=== PATIENT | male | born 1985 | race Caucasian/White ===

== ENCOUNTER 2017-01-17 10:52 | Inpatient (IN) | payer MEDICAID ==
--- NOTE | 2017-01-16 22:00 | NUR ---
RN NOTES: RECEIVED CHANGE OF ORDERS ON MEDICATION. NOTED NEW ROUTINE ORDERS FOR DILAUDID WELL ATIVAN ORDERS. NO NOTED WITHDRAWAL SYMPTOMS AT THIS TIME. ORDERS NOTED AND CARRIED OUT. PATIENT MADE AWARE WELL. CONTINUOUSLY MONITORED CLOSELY. PATIENT ONLY WITH SITTER AT BEDSIDE. Addendum: 01/18/17 at 0304 by LINDA ANDERSON RN PLS DISREGARD WRONG CHART
[~2017-01-17] VITALS: Ht 180.3 cm; Wt 88.0 kg
[2017-01-17] VITALS (16 sets, daily range): BP systolic 93–133; BP diastolic 43–82
--- NOTE | 2017-01-17 11:05 | NUR ---
PT BIB FAMILY TO ER BED 14 C/O GENERALIZED PAIN AND WEAKNESS X 4 DAYS. TACHYCARDIC SYSTEM ANALYST. PT ADMITS TO USING HEROIN AND METH TODAY. GENERALIZED PETACHIAL RASH NOTED. GOWNED AND PLACED ON MONITOR. NAD NOTED. AWAITING MD RICARDO.
--- NOTE | 2017-01-17 11:15 | NUR ---
DR GRADY AT BEDSIDE FOR EVAL.
--- NOTE | 2017-01-17 11:18 | NUR ---
IV LINE STARTED BLOOD DRAWN AND SENT TO LAB.
[2017-01-17] MEDS ORDERED: VANCOMYCIN 1 GM in IV D5W 250 ML IV ONE (11:30)
[2017-01-17] MEDS ORDERED: GENTAMICIN 80 MG in IV D5W 50 ML IV ONE (11:30)
[2017-01-17] MEDS ORDERED: IV NS 0.9% 1,000 ML BAG IV ONE (11:30)
--- NOTE | 2017-01-17 11:34 | NUR ---
RADIOLOGY AT BEDSIDE FOR CHEST XRAY.
[2017-01-17 11:37] LABS: CALCIUM, SERUM 8.3 mg/dL (8.5-10.1); CARBON DIOXIDE 25 mmol/L (21-32); CHLORIDE 87 mmol/L (98-107); CREATININE 4.6 mg/dL (0.6-1.3); GLUCOSE 110 mg/dL (74-106); POTASSIUM 3.6 mmol/L (3.5-5.1); SODIUM SERUM 122 mmol/L (136-145); UREA NITROGEN, BLOOD 67 mg/dL (7-18)
[2017-01-17 11:41] LABS: HEMATOCRIT 31 % (39-51); HEMOGLOBIN 10.6 g/dL (13.5-17.5); MEAN CORPUSCULAR HEMOGLOBIN 28 PG (26.0-33.0); MEAN CORPUSCULAR HGB CONC 34 g/dl (31.0-36.0); MEAN CORPUSCULAR VOLUME 81 fL (80-96); PLATELET COUNT (AUTO) 79 /CMM (150-450); RDW COEFFICIENT OF VARIATION 15.4 (11.5-15.0); RED BLOOD CELL COUNT(AUTO) 3.86 MIL/uL (4.5-6.0)
[2017-01-17 11:43] LABS: ALANINE AMINOTRANSFERASE 25 U/L (12-78); ALBUMIN 1.6 g/dL (3.4-5.0); ALKALINE PHOSPHATASE 268 U/L (46-116); ASPARTATE AMINOTRANSFERASE 51 U/L (15-37); BILIRUBIN,DIRECT 1.7 mg/dL (0.0-0.2); BILIRUBIN,TOTAL 2.2 mg/dL (0.2-1.0); INR 1.01 (0.87-1.13); PROTHROMBIN TIME 10.5 SECS (9.5-12.7); TOTAL PROTEIN, SERUM 6.9 g/dL (6.4-8.2)
[2017-01-17 11:44] LABS: WHITE BLOOD COUNT (AUTO) 31.3 K/uL (4.3-11.0)
[2017-01-17 11:45] LABS: TROPONIN I < 0.017 ng/mL (0.00-0.056)
--- NOTE | 2017-01-17 11:48 | NUR ---
CALLED [employer], TURN MACHINE OPERATOR WAS PAGED.
[2017-01-17] MEDS ORDERED: ONDANSETRON HCL/PF 4 MG/2 ML VIAL IVP PRN (12:30)
[2017-01-17] MEDS ORDERED: Z GUARD REMEDY 2 OZ OINT TP PRN (12:30)
[2017-01-17] MEDS ORDERED: MAG HYDROX/AL HYDROX/SIMETH 30 ML UDC PO PRN (12:30)
[2017-01-17] MEDS ORDERED: MAGNESIUM HYDROXIDE 30 ML UDC PO PRN (12:30)
--- NOTE | 2017-01-17 12:50 | NUR ---
REPORT GIVEN TO YSABEL. PT AWAITING TRANSFER TO FLOOR.
[2017-01-17 12:53] LABS: BAND % (MANUAL) 6 % (0.0-5.0); EOSINOPHILS % (MANUAL) 2 % (0-4); LYMPHOCYTES % (MANUAL) 4 % (16-48); MONOCYTES % (MANUAL) 4 % (0-11.0); NEUTROPHILS % (MANUAL) 84 (42-76)
[2017-01-17] MEDS ORDERED: GENTAMICIN IR PRN (13:00)
[2017-01-17] MEDS ORDERED: NS 0.9% IR PRN (13:00)
--- NOTE | 2017-01-17 13:15 | NUR ---
RN INITIAL NOTES RECEIVED PT FROM ER VIA JARAD. AWAKE, A/OX4. ON 02 AT 2LPM VIA JEFE. NO RESPIRATORY DISTRESS NOTED. NO SOB NOTED. DENIES ANY PAIN AT THIS TIME. IV LINES IN PLACE. FLUSHED WITH NS. PLACED COMFORTABLY TO BED. CONNECTED TO BEDSIDE MONITOR. ORIENTED TO ROOM AND USE OF CALL LIGHT. BODY ASSESSMENT DONE. PICTURES TAKEN FOR SKIN ISSUES AND PLACED IN THE CHART. DR. PALMER AWARE OF ADMISSION. ADMISSION ORDERS MADE AND CARRIED OUT. WILL CLOSELY MONITOR.
[2017-01-17] MEDS ORDERED: FEE PK DOSING 1 MIN EA MC ONE ×2 (13:35)
[2017-01-17] MEDS: IV NS 0.9% 1,000 ML IV PRN ×2 (13:45→21:24)
--- NOTE | 2017-01-17 13:50 | NUR ---
RN NOTES SEEN AND EXAMINED BY DR. PALMER. AWARE OF LAB VALUES: WBC 31.3, HGB 10.6, HCT 31, PLATELET 79, SODIUM 122, BUN 67, CREA 4.6, LACTIC 2.4. MD ORDERED ECHO AND CT SCAN ABDOMEN PELVIS. AWAITING FOR RPT LACTIC LEVEL. DISCUSSED PLAN OF CARE WITH PT, MOTHER AND GF AT BEDSIDE. WILL CONTINUE TO MONITOR.
[2017-01-17] MEDS ORDERED: LORAZEPAM INJ 2 MG/ML VIAL IV PRN (14:00)
[2017-01-17] MEDS: CEFTRIAXONE 2 G in IV D5W 100 ML IV SCH (14:32)
[2017-01-17] MEDS: HYDROMORPHONE INJ 2 MG/ML DISP.SYRIN IV PRN ×2 (14:59→19:51)
--- NOTE | 2017-01-17 16:15 | NUR ---
RN NOTES SEEN AND EXAMINED BY DR. SIMON. AWARE OF CURRENT LAB VALUES, CXR AND CT SCAN RESULT. MD REVIEWED CURRENT MEDICATIONS. PT AFEBRILE. DISCUSSED PLAN OF CARE WITH PT, MOTHER AND GF AT BEDSIDE, VERBALIZED UNDERSTANDING. WILL CONTINUE TO MONITOR.
--- NOTE | 2017-01-17 16:20 | NUR ---
RN NOTES CALLED DR. PALMER REGARDING CT SCAN RESULT. PER MD, WILL CONTINUE ATB TX ORDERED. PT AFEBRILE. WILL CONTINUE TO MONITOR.
[2017-01-17 17:54] LABS: APPEARANCE,URINE SL CLOUDY (CLEAR); BILIRUBIN,URINE NEGATIVE (NEGATIVE); BLOOD, URINE TRACE-INTA Ery/uL (NEGATIVE); COLOR,URINE YELLOW (YELLOW); KETONES,URINE NEGATIVE (NEGATIVE); LEUKOCYTE ESTERASE ,URINE NEGATIVE (NEGATIVE); NITRITE, URINE NEGATIVE (NEGATIVE); PH,URINE 5.5 (5.0-8.0); PROTEIN,URINE NEGATIVE (NEGATIVE); UGLUCOSE NEGATIVE (NEGATIVE); UROBILINOGEN,URINE 0.2 EU/dL (0.2)
[2017-01-17 18:08] LABS: BACTERIA,URINE Many /HPF (None Seen)
[2017-01-17 18:09] LABS: SQUAMOUS EPITHELIAL CELL,UR Few /HPF (None Seen)
--- NOTE | 2017-01-17 18:37 | NUR ---
RN NOTES DR. PALMER IN THE UNIT. ASKED GF AT BEDSIDE FOR LEGAL DOCUMENTATION JUST IN CASE PT WONT BE ABLE TO MAKE DECISIONS FOR HIMSELF. ALSO ORDERED 1:1 SITTER.
--- NOTE | 2017-01-17 18:45 | NUR ---
RN CLOSING NOTES PT REMAINS AWAKE, A/OX3-4. HOB ELEVATED. NO RESPIRATORY DISTRESS NOTED. NO SOB NOTED. DENIES ANY PAIN. IV LINES IN PLACE. TOLERATING IVF WELL. KEPT COMFORTABLE. KEPT CLEAN AND DRY. CALL LIGHT WITHIN REACH. WILL ENDORSE FOR CONTINUITY OF CARE.
--- NOTE | 2017-01-17 20:05 | NUR ---
RN OPENING NOTES: RECEIVED PT ON BED AWAKE ALOX4 VERBALLY RESPONSIVE, WITH NOTED SLIGHT SLURRED SPEECH. ON O2 THERAPY AT 2-3LPM, NOT IN APPARENT DISTRESS. WITH PATIENT;S MOTHER AT BEDSIDE. SINUS TACH ON MONITOR HR AT 100'S BPM. IV ACCESS ON R AND LEFT HAND PATENT AND INTACT, IVF AT ORDERED RATE. WITH COMPLAINTS OF PAIN ON MEDIAL CHEST AREA RADIATING TO HIS FEET. DILAUDID ORDERED. MONITORED FOR RESPONSE TO PAIN MEDICATION. WITH SITTER AT BEDSIDE. SAFETY MEASURES ENSURED AT ALL TIMES. TO SCREEN VISITORS WELL. CONTINUOUSLY MONITORED CLOSELY ESPECIALLY FOR WITHDRAWAL SYMPTOMS.
--- NOTE | 2017-01-17 21:30 | NUR ---
RN NOTES: PATIENT'S AT BEDSIDE RELAYED THAT PATIENT MIGHT NEED NICOTINE PATCH TO HELP HE IS A DAILY SMOKER. 2300 PATIENT FOLLOWED UP WITH NICOTINE PATCH AGAIN. SPOKE TO MD SALES ADVISORY MANAGER DR HARRIS AND OBTAINED ORDER FOR NICOTINE PATCH. ORDER CARRIED OUT.
--- NOTE | 2017-01-17 22:00 | NUR ---
RN NOTES: RECEIVED CHANGE OF ORDERS ON MEDICATION. NOTED NEW ROUTINE ORDERS FOR DILAUDID WELL ATIVAN ORDERS. NO NOTED WITHDRAWAL SYMPTOMS AT THIS TIME. ORDERS NOTED AND CARRIED OUT. PATIENT MADE AWARE WELL. CONTINUOUSLY MONITORED CLOSELY. PATIENT ONLY WITH SITTER AT BEDSIDE.
[2017-01-17] MEDS ORDERED: HYDROMORPHONE 1 MG/1 ML DISP.SYRIN ONE (22:30)
[2017-01-17] MEDS ORDERED: NICOTINE PATCH (21MG) 21 MG PATCH.TD24 TD ONE (22:37)
[2017-01-17] MEDS: NICOTINE PATCH (21MG) 21 MG PATCH.TD24 TD SCH (22:40)
[2017-01-17] MEDS: HYDROMORPHONE 1 MG/1 ML DISP.SYRIN IV SCH (22:41)
[2017-01-18] VITALS (28 sets, daily range): BP systolic 107–146; BP diastolic 53–93
[2017-01-18] MEDS: LORAZEPAM INJ 2 MG/ML VIAL IV PRN ×4 (00:19→23:27)
[2017-01-18] MEDS: ACETAMINOPHEN 325 MG TABLET PO PRN (02:27)
--- NOTE | 2017-01-18 02:30 | NUR ---
RN NOTES: PATIENT STARTED TO BE TACHYCARDIC A T 130'S AND IS SHIVERING. TEMP CHECKED AT 100.7. TYLENOL ORDERED AND ENSURED LIGHT WEIGHT BEDDINGS. TO MONITOR FOR FURTHER FEBRILE EPISODES AND WORSENING WITHDRAWAL SYMPTOMS.
[2017-01-18] MEDS ORDERED: HYDROMORPHONE 1 MG/1 ML DISP.SYRIN ONE (04:05)
[2017-01-18] MEDS: IV NS 0.9% 1,000 ML IV PRN ×4 (04:09→23:28)
[2017-01-18] MEDS: HYDROMORPHONE 1 MG/1 ML DISP.SYRIN IV SCH ×4 (04:09→21:52)
[2017-01-18 04:30] LABS: HEMATOCRIT 26 % (39-51); HEMOGLOBIN 8.9 g/dL (13.5-17.5); MEAN CORPUSCULAR HEMOGLOBIN 28 PG (26.0-33.0); MEAN CORPUSCULAR HGB CONC 34 g/dl (31.0-36.0); MEAN CORPUSCULAR VOLUME 82 fL (80-96); RDW COEFFICIENT OF VARIATION 16.9 (11.5-15.0); WHITE BLOOD COUNT (AUTO) 21.4 K/uL (4.3-11.0)
--- NOTE | 2017-01-18 04:30 | NUR ---
RN NOTES: TEMP RECHECKED NOW DOWN TO 99.9 AFTER TYLENOL. SPONGE BATH GIVEN. ENSURED COOLING MEASURES. PATIENT REQUESTING FOR MUSCLE RELAXANT PATIENT COMPLAINING THAT BLE MUSCLES ARE TIGHTENING AND STIFF. ENCOURAGED ROM. PATIENT IN PAIN DURING EXERCISE/ADL'S DILAUDID ALREADY GIVEN. 0500 RECEIVED CRITICAL LABS FOR PATIENT PLATELETS OF 50. RELAYED TO DR HARRIS, NO NEW ORDERS GIVEN. ASKED IF OK TO GIVE MUSCLE RELAXANT FOR PATIENT ALTHOUGH NO NEW MED ORDERS GIVEN. MADE PATIENT AWARE. PATIENT'S HEART RATE NOW TRENDING DOWN TO LOW 100'S. CONTINUOUSLY MONITORED.
[2017-01-18 04:40] LABS: CALCIUM, SERUM 7.6 mg/dL (8.5-10.1); MAGNESIUM 2.5 mg/dL (1.8-2.4); PHOSPHORUS 3.1 mg/dL (2.5-4.9); POTASSIUM 3.4 mmol/L (3.5-5.1)
[2017-01-18 04:51] LABS: THYROID STIMULATING HORMONE 2.053 uIU/mL (0.358-3.74)
[2017-01-18 04:54] LABS: PLATELET COUNT (AUTO) 50 /CMM (150-450)
[2017-01-18 05:20] LABS: BAND % (MANUAL) 11 % (0.0-5.0); LYMPHOCYTES % (MANUAL) 4 % (16-48); MONOCYTES % (MANUAL) 6 % (0-11.0); NEUTROPHILS % (MANUAL) 79 (42-76)
--- NOTE | 2017-01-18 06:42 | NUR ---
RN CLOSING NOTES: PATIENT COMPLAINING STILL OF MUSCLE CRAMPS AND PATIENT STARTED TO GET RESTLESS AT THIS TIME. ATIVAN GIVEN PRN ORDERED. DR HARRIS DURING PREVIOUS CONVERSATION AGREES WITH ATIVAN FOR NOW IF WITH FURTHER COMPLAINTS OR EPISODES OF TREMORS AND STIFFNESS. OTHERWISE PATIENT'S VITALS REMAINED WITHIN LIMITS, HR AT 110'S. SITTER REMAINED AT BEDSIDE. SAFETY MEASURES ENSURED. CONTINUOUSLY MONITORED CONTINUITY OF CARE TO BE ENDORSED TO AM SHIFT RN.
--- NOTE | 2017-01-18 07:05 | NUR ---
RN INITIAL NOTES RECEIVED PT AWAKE, A/OX4. ON 02 AT 2LPM VIA NC. NO RESPIRATORY DISTRESS NOTED. NO SOB NOTED. DENIES ANY PAIN AT THIS TIME. IV LINES IN PLACE. ON IVF. PT COMFORTABLE. BLE ELEVATED. CALL LIGHT WITHIN REACH. SITTER AT BEDSIDE. WILL MONITOR.
[2017-01-18] MEDS: NICOTINE PATCH (21MG) 21 MG PATCH.TD24 TD SCH (08:19)
--- NOTE | 2017-01-18 09:40 | NUR ---
RN NOTES SEEN AND EXAMINED BY DR. AMBROSIO. AWARE OF CURRENT LAB VALUES AND IMAGING RESULT. PER MD, WILL CALL SURGEON TO DISCUSS WETHER HE NEEDS VALVE REPLACEMENT. WILL STAY ON IV ATBS FOR LIKE 6 WEEKS. DISCUSSED PLAN OF CARE WILL PT. WILL CONTINUE TO MONITOR.
--- NOTE | 2017-01-18 10:30 | NUR ---
RN NOTES SEEN AND EXAMINED BY DR. SIMON. AWARE OF PT'S CURRENT LAB VALUES. ON 02 AT 2LPM VIA NC. DISCUSSED PLAN OF CARE WITH DR. AMBROSIO. NO ORDER MADE AT THIS TIME.
[2017-01-18] MEDS ORDERED: GENTAMICIN 80 MG in IV D5W 50 ML IV SCH (11:00)
--- NOTE | 2017-01-18 11:34 | NUR ---
RN NOTES SEEN AND EXAMINED BY DR. SHAMA CALERO. AWARE OF LAB VALUES: WBC 21.4, AFEBRILE. ON IV ATBS. HGB 8.9, HCT 26, PLATELET 50. NO SIGNS OF ACTIVE BLEEDING NOTED. SODIUM 131, POTASSIUM 3.4, BUN 54, CREA 3.0. ON IVF. PER MD, DO NOT REPLACE POTASSIUM DUE TO ELEVATED BUN/CREA LEVEL. MD ORDERED BLD CULTURE X2. NOTED AND CARRIED OUT. WILL MONITOR. Addendum: 01/18/17 at 1449 by GORGE ALLEN RN [id number] DR. SESAY NOTIFIED OF BLD CX RESULT, MRSA STAPH. PT ON IV ATBS. NO ASE NOTED. MD HAS ORDER FOR BLD CULTURE X2.
[2017-01-18] MEDS: VANCOMYCIN 1 GM in IV D5W 250 ML IV SCH (12:12)
[2017-01-18] MEDS: CEFTRIAXONE 2 G in IV D5W 100 ML IV SCH (13:15)
[2017-01-18] MEDS: HYDROMORPHONE 1 MG/1 ML DISP.SYRIN IV PRN ×2 (13:16→20:04)
--- NOTE | 2017-01-18 14:15 | NUR ---
RN NOTES SEEN AND EXAMINED BY DR. HERNANDEZ. AWARE OF CURRENT LAB VALUES AND CXR RESULT. PT ON IVF. ADEQUATE URINE OUTPUT NOTED. WILL CLOSELY MONITOR.
--- NOTE | 2017-01-18 14:39 | NUR ---
Social service consult requested by Dr. Vidal for IV drug use and homelessness. Pt. is a 31 year old male who was admitted to [facility] for endocarditis. HARRY met with pt. and his mother Anna justice. Pt. is alert and oriented x2. Pt. appeared lethargic and unable to speak clearly at this time. HARRY spoke with pt's mother Anna. Anna informed HARRY that pt. has a /girlfriend Cheyenne, that HARRY met yesterday. Both pt. and Cheyenne have been residing for the past 6 weeks at pt's father's house located at [address] [place] [address] in [facility]. Currently pt's father Rohan is also hospitalized at [facility]. Anna informed HARRY that pt. has Asperger's syndrome and graduated with a Masters in Computer Science from [employer]. Pt. is a heroin and methamphetamine user and often shares needles with his Cheyenne. Pt. has been using IV Heroin for the last three years. The longest pt. has been sober for about 2 months.Pt. and his /girlfriend use about 1 g heroin a day if able to. Pt. is unemployed at this time and does not have a strong work history. Pt. mother Anna began to cry. HARRY offered active listening and emotional support to her. Pt. and his have been moving a lot over the last 2 years periodically homeless on the streets intermittently or with family/friends. Addendum: 01/18/17 at 1527 by RAMILA MCDONALD Pt. has a court order to attend drug treatment that needs to be completed by 05/04/2017.
[2017-01-18] MEDS: SOD FERRIC GLUC 125 MG in IV NS 0.9% 100 ML IV SCH (14:58)
--- NOTE | 2017-01-18 18:56 | NUR ---
RN CLOSING NOTES PT REMAINS AWAKE, A/OX3-4. HOB ELEVATED. NO RESPIRATORY DISTRESS NOTED. NO SOB NOTED. NO SIGNS OF ANY PAIN. IV LINES IN PLACE. TOLERATING IVF WELL. KEPT COMFORTABLE. KEPT CLEAN AND DRY. CALL LIGHT WITHIN REACH. SITTER AT BEDSIDE. WILL ENDORSE FOR CONTINUITY OF CARE.
--- NOTE | 2017-01-18 20:00 | NUR ---
RN INITIAL NOTES RECEIVED THE PATIENT AWAKE AT BEDSIDE, A/O X3, ON 2L NASAL CANNULA SATURATING WELL, NO S/S OF RESP DISTRESS. CURRENTLY ST ON THE MONITOR, HR 120-140'S. MOM TAM AND LISSY ARE AT BEDSIDE. SITTER AT BEDSIDE WELL. PT IS ABLE TO USE THE URINAL. RIGHT HAND 20G AND LEFT HAND 18G WITH NS @ 150MLS/HR, NO S/S OF INFILTRATION/INFECTION, DRESSINGS CDI. BED LOW AND LOCKED, SIDERAILS UP, CALL LIGHT WITHIN REACH. WILL MONITOR
--- NOTE | 2017-01-18 22:00 | NUR ---
RN NOTES EXPLAINED TO /GIRLFRIEND LISSY ABOUT ICU VISITOR POLICY. LISSY VERBALIZED UNDERSTANDING AND IS WILLING TO STAY IN WAITING ROOM AND JUST VISIT THE PATIENT EVERY HOUR FOR 10-15MIN AT A TIME.
[2017-01-19] VITALS (24 sets, daily range): BP systolic 92–165; BP diastolic 60–105
[2017-01-19] MEDS: HYDROMORPHONE 1 MG/1 ML DISP.SYRIN IV SCH (03:08)
[2017-01-19] MEDS: ACETAMINOPHEN 325 MG TABLET PO PRN ×3 (03:23→19:30)
[2017-01-19] MEDS: LORAZEPAM INJ 2 MG/ML VIAL IV PRN ×2 (03:24→14:38)
[2017-01-19 04:48] LABS: HEMATOCRIT 23 % (39-51); HEMOGLOBIN 7.8 g/dL (13.5-17.5); MEAN CORPUSCULAR HEMOGLOBIN 28 PG (26.0-33.0); MEAN CORPUSCULAR HGB CONC 34 g/dl (31.0-36.0); MEAN CORPUSCULAR VOLUME 82 fL (80-96); RDW COEFFICIENT OF VARIATION 16.7 (11.5-15.0); RED BLOOD CELL COUNT(AUTO) 2.79 MIL/uL (4.5-6.0); WHITE BLOOD COUNT (AUTO) 19.3 K/uL (4.3-11.0)
[2017-01-19] MEDS: IV NS 0.9% 1,000 ML IV PRN (05:08)
[2017-01-19 05:11] LABS: CALCIUM, SERUM 7.6 mg/dL (8.5-10.1); CREATININE 1.5 mg/dL (0.6-1.3); MAGNESIUM 2.1 mg/dL (1.8-2.4); PHOSPHORUS 3.9 mg/dL (2.5-4.9); POTASSIUM 3.2 mmol/L (3.5-5.1)
[2017-01-19 05:32] LABS: PLATELET COUNT (AUTO) 53 /CMM (150-450)
[2017-01-19 06:14] LABS: BAND % (MANUAL) 2 % (0.0-5.0); LYMPHOCYTES % (MANUAL) 7 % (16-48); MONOCYTES % (MANUAL) 9 % (0-11.0); NEUTROPHILS % (MANUAL) 82 (42-76)
--- NOTE | 2017-01-19 06:30 | NUR ---
RN CLOSING NOTES PT REMAINS STABLE OF THE MOMENT, RESTING COMFORTABLY WITH NO S/S OF ANXIETY. ALL DUE MEDS GIVEN, AM CARE PROVIDED. WILL ENDORSE JANET TO AM RN
--- NOTE | 2017-01-19 07:13 | NUR ---
EFFICIENCY ANALYST NOTES RECEIVED PATIENT DROWSY , RESPONSIVE TO PAIN AND STERNAL RUB STIMULI , OPENS EYES , FOLLOWS COMMANDS ,BUT GOES TO SLEEP EASILY NOT IN ACUTE DISTRESS , RESPIRATIONS TACHYPNEIC AND DEEP WITH SPO2 OF 100% VIA 2LPM NC , ST 125 ON BEDSIDE MONITOR , IV OF R HAND # 20 AND L HAND # 18 PATENT AND INTACT WITH IVF OF NS @ 150ML/HR INFUSING WELL , ALL NEEDS ATTENDED , BED ON LOW AND LOCKED POSITION , SIDE RAILS X2 , CALL LIGHT WITHIN REACH , HOB @ 45 , 1:1 SITTER AT BEDSIDE , WILL CONTINUE TO MONITOR
[2017-01-19] MEDS: NICOTINE PATCH (21MG) 21 MG PATCH.TD24 TD SCH (08:45)
[2017-01-19] MEDS: Potassium Chloride 20 MEQ in IV NS 0.9% 1,000 ML IV SCH ×3 (08:45→23:50)
--- NOTE | 2017-01-19 09:10 | NUR ---
SKEET OPERATOR NOTES SEEN AND EVALUATED BY DR SIMON , DISCUSSED LABS , PT ON 2LPN SPO2 OF 100% TACHYPNEIC WITH DEEP RESPIRATIONS WITH NO EVIDENCE OF DISTRESS , DROWSY , RESPONSIVE TO PAIN STIMULI , OPENS EYES BUT EASILY GOES BACK TO SLEEP , ABG RESULT DISCUSSED , MD AWARE
[2017-01-19 09:14] LABS: ABG BASE EXCESS 2.2 mmol/L; ABG OXYGEN SATURATION 94.6 % (92.0-98.5); ABG PCO2 31.1 mmHg (35.0-45.0); ABG PH 7.522 (7.350-7.450); ABG PO2 75.7 mmHg (75.0-100.0); AaDO2 101.7 mmHg; COHb 1.5 % (0.5-1.5); MetHb 0.7 % (0.0-1.5); O2Hb 92.5 % (94.0-97.0); SITE, ABG Right Radial; VENT MODE, BG NASAL CANNULA
--- NOTE | 2017-01-19 09:45 | NUR ---
SAMPLE DYE MIXER NOTES SEEN AND EVALUATED BY DR SESAY , DISCUSSED LABS , LATEST V/S , AFEBRILE , BLOOD CULTURES , PT ON 2LPM NC , DROWSY AND SEDATED , RESPONSIVE TO PAIN STIMULI , OPENS EYES BUT EASILY GOES BACK TO SLEEP , CONSUMED 50 % OF HIS MEALS , CURRENTLY ON IVF OF NS WITH 20MEQ KCL @ 125ML/HR INFUSING WELL , AWARE
--- NOTE | 2017-01-19 12:10 | NUR ---
MERCHANDISE SHOPPER NOTES PT NOTED TO BE TACHYPNEIC RR OF 30'S , TACHYCARDIC HR OF 120-130'S , HOT TO TOUCH TEMP OF 102.5F , BATHE PT WITH ICE WATER , APPLIED ICE PACKED AND PLACED COOLING BLANKET WITH CORE TEMP OF 102.5F , TYLENOL PRN GIVEN , PAGED DR EVERETT TO NOTIFY REGARDING PT TEMP . AWAITING FOR CALL BACK NOTED WITH X1BM SOFT WITH SOME SMALL AMOUNT OF BLOOD , STOOL COLLECTED AND SENT FOR STOOL OB .
[2017-01-19] MEDS: HYDROMORPHONE 1 MG/1 ML DISP.SYRIN IV PRN ×2 (12:56→20:23)
[2017-01-19] MEDS: VANCOMYCIN 1 GM in IV D5W 250 ML IV SCH (13:04)
[2017-01-19] MEDS: CEFTRIAXONE 2 G in IV D5W 100 ML IV SCH (13:19)
--- NOTE | 2017-01-19 13:33 | NUR ---
SUPPLIER QUALITY SPECIALIST NOTES PAGED DR SESAY UNDER [place] EXCHANGE , NOTIFIED PT HAS TEMP OF 102.5F , TYLENOL PRN GIVEN , COOLING BLANKET APPLIED , CURRENT TEMP IS 101.9 F , NOTED WITH A BLOOD IN HIS STOOL , PER ORDER REPEAT CBC @ 1800 . ORDERS CARRIED OUT Addendum: 01/19/17 at 1334 by DOV HAZEL RN MD JOSE WITH ADVANCING DIET FROM CLEAR LIQUIDS TO REGULAR CARDIAC DIET
--- NOTE | 2017-01-19 13:55 | NUR ---
BLIND HANGER NOTES SPOKE WITH DR SESAY , PER MD ORDER FIBRINOGEN AND FIBRIN SPLIT PRODUCTS , OBTAIN HEMATOLOGY CONSULT UNDER DR DICKENS DUE TO LOW H/H AND PLATELET POSSIBLE DIC? HOLD TELE TRANSFER AND KEEP PT ON ICU FOR OBSERVATION , ORDERS CARRIED OUT
[2017-01-19] MEDS: SOD FERRIC GLUC 125 MG in IV NS 0.9% 100 ML IV SCH (14:42)
--- NOTE | 2017-01-19 15:30 | NUR ---
PHARMACY INNOVATION ASSISTANT NOTES PT NOTED TO BE TACHYPNEIC RR OF 30'S , TACHYCARDIC HR OF 120-130'S , HOT TO TOUCH TEMP OF 102.5F , BATHE PT WITH ICE WATER , APPLIED ICE PACKED AND PLACED COOLING BLANKET WITH CORE TEMP OF 102.5F , TYLENOL PRN GIVEN ,SPOKE WITH MANAGER OPERATIONS DEVANTE , VERIFIED IF HE WANTS TO ORDER AL CULTURE , PER MANAGER OPERATIONS SHE WILL PUT ON ORDERS
[2017-01-19 16:06] LABS: INR 1.25 (0.87-1.13)
[2017-01-19 18:26] LABS: HEMATOCRIT 21 % (39-51); HEMOGLOBIN 7.3 g/dL (13.5-17.5); MEAN CORPUSCULAR HEMOGLOBIN 28 PG (26.0-33.0); MEAN CORPUSCULAR HGB CONC 35 g/dl (31.0-36.0); MEAN CORPUSCULAR VOLUME 79 fL (80-96); PLATELET COUNT (AUTO) 87 /CMM (150-450); RDW COEFFICIENT OF VARIATION 18.1 (11.5-15.0); RED BLOOD CELL COUNT(AUTO) 2.63 MIL/uL (4.5-6.0)
[2017-01-19 19:03] LABS: WHITE BLOOD COUNT (AUTO) 17.6 K/uL (4.3-11.0)
[2017-01-19 19:12] LABS: BAND % (MANUAL) 15 % (0.0-5.0); BASOPHILS % (MANUAL) 1 % (0.0-2.0); EOSINOPHILS % (MANUAL) 2 % (0-4); LYMPHOCYTES % (MANUAL) 11 % (16-48); MONOCYTES % (MANUAL) 5 % (0-11.0); NEUTROPHILS % (MANUAL) 66 (42-76)
--- NOTE | 2017-01-19 19:30 | NUR ---
GOVERNMENT SERVICE EXECUTIVE INITIAL NOTE RECEIVED REPORT FROM DOV LIU. PT IN BED. ASLEEP BUT EASILY AROUSABLE. PT IS ORIENTED X2 NAME AND PLACE. CURRENTLY ON 2L NC, RR 36. CORE TEMP 101.8, COOLING MEASURES IN PLACE. COOLING BLANKET AND ICE. LUNG SOUNDS DIMINISHED. BOWEL SOUNDS PRESENT. INCONTINENT TO URINE AND STOOL. RIGHT UPPER ARM MIDLINE INTACT, RIGHT HAND IV INFILTRATED, WILL REMOVE. REPOSITIONED FOR COMFORT. TAM (MOM) AT BEDSIDE. BED IN LOW LOCKED POSITION. CALL LIGHT WITHIN REACH. WILL CONTINUE TO MONITOR.
[2017-01-19] MEDS: VANCOMYCIN 0.75 GM in IV D5W 250 ML IV SCH (21:04)
[2017-01-20] VITALS (29 sets, daily range): BP systolic 105–165; BP diastolic 34–98
--- NOTE | 2017-01-20 00:10 | NUR ---
EMBOSSING MACHINE OPERATOR HELPER PT IN BED. INCONTINENT TO URINE AND STOOL. CLEANED AND REPOSITIONED WITH MAXIMUM ASSISTANCE. PT TOLERATED WELL. RR 30. CORE TEMP 100.1. WILL CONTINUE TO MONITOR.
[2017-01-20] MEDS: LORAZEPAM INJ 2 MG/ML VIAL IV PRN ×4 (00:52→21:59)
[2017-01-20] MEDS: ACETAMINOPHEN 325 MG TABLET PO PRN ×3 (02:35→20:18)
--- NOTE | 2017-01-20 02:35 | NUR ---
ICU/RN- FEBRILE, TEMPT.102/F, CONTINUES COOLING MEASURES IN PROGRESS. TYLENOL 650MG PO GIVEN, TOLERATED WELL. WILL REASSESS FOR PRN EFFECTIVENESS
--- NOTE | 2017-01-20 02:59 | NUR ---
ICU/RN-RECEIVED PT. FROM NOE VEGA. SLEEPING, AROUSABLE, BREATHING FAST W/ RR-32/MIN. W/ O2 SUPPORT OF 3L/NC,SATS.-100%.EKG ST W/ HR-121, BP-143/86. NO S/S OF DISTRESS OR PAIN. FEBRILE.-102.2/F,W/ CONTINUES COOLING MEASURES, COOLING BLANKET IN PLACE. PT. ON CONTACT ISOLATION FOR MRSA-BLOOD. PRECAUTIONS TAKEN PER PROTOCOL.
--- NOTE | 2017-01-20 04:00 | NUR ---
ICU/RN- REMAINS FEBRILE. TEMPT.-101.9/F, CONTINUOUS COOLING MEASURES DONE, COOL BED BATH GIVEN.NOT IN ANY DISTRESS. WILL CONTINUE TO MONITOR.
[2017-01-20 04:33] LABS: HEMATOCRIT 21 % (39-51); HEMOGLOBIN 7.1 g/dL (13.5-17.5); MEAN CORPUSCULAR HEMOGLOBIN 28 PG (26.0-33.0); MEAN CORPUSCULAR HGB CONC 34 g/dl (31.0-36.0); MEAN CORPUSCULAR VOLUME 81 fL (80-96); PLATELET COUNT (AUTO) 56 /CMM (150-450); RDW COEFFICIENT OF VARIATION 16.8 (11.5-15.0); RED BLOOD CELL COUNT(AUTO) 2.57 MIL/uL (4.5-6.0); WHITE BLOOD COUNT (AUTO) 17.3 K/uL (4.3-11.0)
[2017-01-20] MEDS: VANCOMYCIN 0.75 GM in IV D5W 250 ML IV SCH ×3 (04:40→20:20)
[2017-01-20 04:46] LABS: CALCIUM, SERUM 7.4 mg/dL (8.5-10.1); MAGNESIUM 1.9 mg/dL (1.8-2.4); POTASSIUM 3.3 mmol/L (3.5-5.1)
[2017-01-20] MEDS: HYDROMORPHONE 1 MG/1 ML DISP.SYRIN IV PRN ×3 (05:11→17:51)
--- NOTE | 2017-01-20 05:11 | NUR ---
ICU/RN- PT. AWAKE, SHIVERING, C/O GENERALIZED BODY ACHES /, MEDICATED W/ DILAUDID 0.5 MG SIVP. WILL REASSESS FOR PRN EFFECTIVENESS.
[2017-01-20 05:50] LABS: BAND % (MANUAL) 1 % (0.0-5.0); EOSINOPHILS % (MANUAL) 2 % (0-4); LYMPHOCYTES % (MANUAL) 5 % (16-48); MONOCYTES % (MANUAL) 9 % (0-11.0); NEUTROPHILS % (MANUAL) 83 (42-76)
[2017-01-20] MEDS: POTASSIUM CHLORIDE 20 MEQ TAB.PRT.SR PO SCH ×2 (06:46→07:53)
--- NOTE | 2017-01-20 07:36 | NUR ---
CLAIM AUDITOR RECEIVED PATIENT FROM THE PREVIOUS SHIFT. PATIENT IS IN BED. SLEEPING BUT AROUSABLE. SINUS TACH ON MONITOR. TEMP 102.1. NORMAL BP. ABLE TO VERBALIZE NEEDS. SAFETY ASSESSMENT DONE. WILL CONTINUE TO MONITOR AND PROVIDE CARE.
[2017-01-20] MEDS: NICOTINE PATCH (21MG) 21 MG PATCH.TD24 TD SCH (07:53)
[2017-01-20] MEDS: HYDROCODONE/APAP 5/325MG 1 EACH TABLET PO PRN ×2 (08:02→20:17)
--- NOTE | 2017-01-20 08:46 | NUR ---
WOUND CARE CONSULT: PT SEEN FOR SKIN ASSESSMENT. CURRENT RAUL SCORE IS 17. PT IS CONTINENT AND ABLE TO ASSIST WITH TURNING AND REPOSITIONING IN BED BUT VERY WEAK. DRY ABRASIONS NOTED TO BILATERAL HIP AREAS. EDEMA NOTED TO BILATERAL LOWER EXTREMITIES. ALL SKIN PROTECTION MEASURES IN PLACE. DISCUSSED WITH NURSING STAFF. WILL SEE PRN. JUAREZ IN AGREEMENT WITH PLAN OF CARE. Addendum: 01/20/17 at 0847 by JENNIFER MCINTOSH WNDNU Amended: Links added.
--- NOTE | 2017-01-20 10:54 | NUR ---
ANIMAL SHELTER SUPERVISOR RECEIVED ORDERS TO CANCEL TELE LEVEL OF CARE PER VP INFORMATION TECHNOLOGY.
[2017-01-20] MEDS: CEFTRIAXONE 2 G in IV D5W 100 ML IV SCH (13:38)
[2017-01-20] MEDS: SOD FERRIC GLUC 125 MG in IV NS 0.9% 100 ML IV SCH (17:18)
[2017-01-20] MEDS: PANTOPRAZOLE 40 MG VIAL IV SCH (20:20)
--- NOTE | 2017-01-20 20:49 | NUR ---
received pt from day shift, alert, follows commands, fatigued, ST (130), on 3L 02 sat well, tachypneic (28-41), fever 104.1, on cooling blanket, additional cooling measures initiated, Tylenol given, BP stable, urinates in urinal, no bloody stool noted, sitter 1:1, family at the bedside, pt turned and repositioned.
[2017-01-21] VITALS (43 sets, daily range): BP systolic 90–159; BP diastolic 37–104
[2017-01-21] MEDS: HYDROMORPHONE 1 MG/1 ML DISP.SYRIN IV PRN ×3 (00:51→18:20)
--- NOTE | 2017-01-21 00:51 | NUR ---
pt is resting in the bed, alert, follows commands, ST 114, Temp down to 100.4, Dilaudid and Ativan given, v/s stable, no pain, cooling blanket on, pt turned and repositioned, sitter at the bedside.
[2017-01-21] MEDS: LORAZEPAM INJ 2 MG/ML VIAL IV PRN ×4 (01:59→20:22)
[2017-01-21] MEDS: ACETAMINOPHEN 325 MG TABLET PO PRN ×4 (02:29→21:06)
[2017-01-21] MEDS: HYDROCODONE/APAP 5/325MG 1 EACH TABLET PO PRN ×2 (03:32→14:40)
--- NOTE | 2017-01-21 04:15 | NUR ---
pt is resting in the bed, alert, follows commands, fatigued, ST, sat well, cooling blanket on, temp 102,1, Tylenol given, BP stable, [place] 1 tab given for pain, good urine output, on very small BM, pt cleaned, changed and repositioned q2hrs.
[2017-01-21] MEDS: VANCOMYCIN 0.75 GM in IV D5W 250 ML IV SCH ×3 (04:20→21:06)
[2017-01-21 05:11] LABS: MEAN CORPUSCULAR HEMOGLOBIN 27 PG (26.0-33.0); MEAN CORPUSCULAR HGB CONC 34 g/dl (31.0-36.0); MEAN CORPUSCULAR VOLUME 81 fL (80-96); PLATELET COUNT (AUTO) 88 /CMM (150-450); RDW COEFFICIENT OF VARIATION 16.9 (11.5-15.0); RED BLOOD CELL COUNT(AUTO) 2.46 MIL/uL (4.5-6.0); WHITE BLOOD COUNT (AUTO) 21.5 K/uL (4.3-11.0)
[2017-01-21 05:21] LABS: CALCIUM, SERUM 7.2 mg/dL (8.5-10.1); MAGNESIUM 1.5 mg/dL (1.8-2.4); PHOSPHORUS 4.1 mg/dL (2.5-4.9); POTASSIUM 3.8 mmol/L (3.5-5.1)
[2017-01-21 05:39] LABS: HEMATOCRIT 20 % (39-51); HEMOGLOBIN 6.7 g/dL (13.5-17.5)
[2017-01-21 06:07] LABS: COMPLEMENT C3, SERUM 64 mg/dL (82-167); COMPLEMENT C4, SERUM 10 mg/dL (14-44)
[2017-01-21 06:10] LABS: INR 1.16 (0.87-1.13); PROTHROMBIN TIME 12.1 SECS (9.5-12.7)
[2017-01-21 06:11] LABS: D-DIMER 14.2 mg/L(FEU (0.17-0.50)
--- NOTE | 2017-01-21 06:15 | NUR ---
H/H 6.10/14 sephora operations consultant notified Order received to recheck H/H at 0900 if still low call MD.
[2017-01-21 06:28] LABS: BAND % (MANUAL) 2 % (0.0-5.0); LYMPHOCYTES % (MANUAL) 9 % (16-48); MONOCYTES % (MANUAL) 4 % (0-11.0); NEUTROPHILS % (MANUAL) 85 (42-76)
[2017-01-21] MEDS: NICOTINE PATCH (21MG) 21 MG PATCH.TD24 TD SCH (08:48)
[2017-01-21] MEDS: FOLIC ACID 1 MG TABLET PO SCH (08:48)
[2017-01-21] MEDS: PANTOPRAZOLE 40 MG VIAL IV SCH ×2 (08:48→20:22)
[2017-01-21] MEDS: FERROUS SULFATE (325 MG) 325 MG/TAB TABLET PO SCH ×2 (08:52→16:51)
--- NOTE | 2017-01-21 09:30 | NUR ---
SERVICE ATTENDANT; PULMONARY Dr. Alanis at bedside update was give. Pts parents at bedside, Dr. Alanis able to speak with parents and give them update and POC. discussed with family regarding Dr. Fuentes recommendations.
--- NOTE | 2017-01-21 11:00 | NUR ---
SIMULATION TECH; MD PRIMARY Dr. Farshad Francis at bedside. update was given to pts parents. discussed regarding the possible need to transfer pt to higher level of care, for cardio-thoracic surgery. Also discussed regarding pts need for blood transfusion. pt in agreement for transfusion.
[2017-01-21] MEDS: Magnesium 1GM/D5W 100ML PREMIX 100 ML IV SCH ×2 (11:10→12:08)
[2017-01-21 11:15] LABS: *ANCANTIMYELOPEROXIDASE (MPO) <9.0 U/mL (0.0-9.0); *ANCANTIPROTEINASE 3 (PR-3) AB <3.5 U/mL (0.0-3.5)
[2017-01-21 11:40] LABS: HEMOGLOBIN 7.1 g/dL (13.5-17.5)
--- NOTE | 2017-01-21 11:45 | NUR ---
INDUSTRIAL SAFETY AND HEALTH MANAGER: Order clarification H/H back .04/17. Dr. tang notified of new results regarding if pt needs blood transfusion, per MD to give one unit of blood. Also discussed regarding pt remaining fibrile and if ok to given transfusion with elevated temp. Ok to give transfuse to administer Tylenol and Benadryl prior to transfusion.
--- NOTE | 2017-01-21 14:53 | NUR ---
PRIVATE EQUITY ANALYST; Pts girlfriend Cheyenne at bedside. Stating that she is the "". pts mother not sure if they are legally . Pt is awake and is ok to give information. Cheyenne is demanding that we change pts pain medications and asking for pts information. She has slurred speech and wearing sunglasses. Attempting to give pt liquid from her cup, told her that he is not allowed outside food for pts safety. Pt HR increasing to 140's-150's with temp of 104, pt restless. asked Cheyenne to step out and let pt rest. will review medications.
--- NOTE | 2017-01-21 14:57 | NUR ---
Pt's friend Steven and /girlfriend Cheyenne stopped by the Social service office requesting for HARRY to provide verification of admission letter for pt's pneumatic jack operator since pt. is court mandated to attend drug treatment program. HARRY completed letter and gave it to Steven. Addendum: 01/21/17 at 1523 by RAMILA MCDONALD HARRY suggested to Cheyenne, if possible she should bring copy of marriage certificate so there are no issues regarding if she is the or not.
--- NOTE | 2017-01-21 16:30 | NUR ---
curriculum director; pain management pt c/o generalized pain is requesting if we can change the frequency of Dilaudid medication. Dr. Yen notified per MD to keep orders the same, not to change frequency or dose.
[2017-01-21] MEDS: diphenhydrAMINE HCL 50 MG/ML VIAL IV PRN (16:52)
--- NOTE | 2017-01-21 17:38 | NUR ---
Discussed with Dr. Yen and nursing stock supervisor about Cheyenne;s appearance, slurred speech and attempt to given pt unknown fluids to drink. Per Dr. Yen and nursing stock supervisor ok to have visitor restrictions, for pt safety. Hospital Security notified that Cheyenne Zepeda and Steven Castro are able to visit pt with 10min intervals and with chief security and safety officer only and to stay with visitors at all time.
--- NOTE | 2017-01-21 20:00 | NUR ---
TEACHER OF THE DEAF/HARD OF HEARING NOTES RECEIVED PT IN BED, A/O X4. AWAKE. FEVER OF 103. COOLING BLANKET IN PLACE. TELE READS ST AT 126 BPM. ON NC AT 4 LPM, BRAD WELL. PT APPEARS DROWSY. JOSE 18G MIDLINE IN PLACE, RUNNING PRBC, NO ADVERSE REACTIONS NOTED. PT HAS HX OF DRUG ABUSE. ALL NEEDS MET. CALL LIGHT WITHIN REACH.
--- NOTE | 2017-01-21 21:00 | NUR ---
POLICE SHIFT COMMANDER NOTES PT MOTHER (TAM) AND MOTHER'S FRIEND AT BEDSIDE. ALL QUESTIONS ANSWERED. PT'S MOTHER REQUESTED TO CONTINUE THE LIMITED VISITATION RIGHTS FOR HILDA.
--- NOTE | 2017-01-21 22:00 | NUR ---
COMMUNICATIONS OPERATOR NOTES PT'S "" (LISSY) AND BROTHER (ALEC) CAME TO VISIT PT. ESCORTED AND SUPERVISED BY SECURITY THROUGHOUT VISIT. VISIT LIMITED TO 10 MINUTES.
[2017-01-21 23:32] LABS: HEMOGLOBIN 6.6 g/dL (13.5-17.5)
[2017-01-22] VITALS (52 sets, daily range): BP systolic 101–154; BP diastolic 58–102
[2017-01-22] MEDS: HYDROMORPHONE 1 MG/1 ML DISP.SYRIN IV PRN ×4 (00:22→19:27)
[2017-01-22] MEDS: HYDROCODONE/APAP 5/325MG 1 EACH TABLET PO PRN ×4 (00:59→22:19)
[2017-01-22] MEDS: diphenhydrAMINE HCL 50 MG/ML VIAL IV PRN ×2 (00:59→19:27)
[2017-01-22] MEDS: LORAZEPAM INJ 2 MG/ML VIAL IV PRN ×5 (01:14→21:23)
[2017-01-22] MEDS ORDERED: GUAIFENESIN 300 MG/15 ML UDC PO PRN (01:30)
--- NOTE | 2017-01-22 04:00 | NUR ---
SIGNAL INTEGRITY ENGINEER NOTES PT CONTINUE TO HAVE FEVER RANGING FROM 102-103. PT DRINKS PLENTY OF FLUIDS AND ABLE TO USE URINAL. REQUESTS TO HAVE PRN ATIVAN AND DILAUDID DOSES FREQUENTLY ORDERED.
[2017-01-22 05:02] LABS: HEMATOCRIT 25 % (39-51); HEMOGLOBIN 8.3 g/dL (13.5-17.5); MEAN CORPUSCULAR HEMOGLOBIN 28 PG (26.0-33.0); MEAN CORPUSCULAR HGB CONC 34 g/dl (31.0-36.0); MEAN CORPUSCULAR VOLUME 82 fL (80-96); PLATELET COUNT (AUTO) 137 /CMM (150-450); RDW COEFFICIENT OF VARIATION 15.9 (11.5-15.0); RED BLOOD CELL COUNT(AUTO) 3.03 MIL/uL (4.5-6.0); WHITE BLOOD COUNT (AUTO) 21.9 K/uL (4.3-11.0)
[2017-01-22 05:17] LABS: CALCIUM, SERUM 7.5 mg/dL (8.5-10.1); CREATININE 1.1 mg/dL (0.6-1.3); MAGNESIUM 1.6 mg/dL (1.8-2.4); PHOSPHORUS 3.3 mg/dL (2.5-4.9); POTASSIUM 4.1 mmol/L (3.5-5.1)
[2017-01-22] MEDS: VANCOMYCIN 0.75 GM in IV D5W 250 ML IV SCH ×2 (06:06→12:12)
[2017-01-22] MEDS: ACETAMINOPHEN 325 MG TABLET PO PRN ×2 (06:15→18:27)
--- NOTE | 2017-01-22 07:00 | NUR ---
icu initial note received pt in bed, asleep, easy to arouse, pt is lethargic and weak, pt follows commands with multiple request, pt is able to move all extremities, pt is on 4l nc, sating well, respirations in 30's, pt is on bedside monitor showing st 130's, pt is on a cooling blanket, rectal temp 103.5, pt uses urinial, pt is noted with bilateral extremities hot and swelling, md aware, pt has fermín midline #18g,sl, c/d/i/patent, flushing well, no s/s of infection/ infiltration noted at this time, isolation precautions observed at all times, all safety measures in place at all times, call light within easy reach, all needs met at this time. will monitor pt closely for changes
--- NOTE | 2017-01-22 07:05 | NUR ---
icu note dr. kirkpatrick, made rounds, updated family, answered all questions and concerns, all new orders ack, will be carried out
--- NOTE | 2017-01-22 07:15 | NUR ---
icu note complete bedbath given to pt. all linens were changed.
[2017-01-22] MEDS: Magnesium 1GM/D5W 100ML PREMIX 100 ML IV SCH ×2 (08:38→09:44)
[2017-01-22] MEDS: NICOTINE PATCH (21MG) 21 MG PATCH.TD24 TD SCH (08:43)
[2017-01-22] MEDS: FERROUS SULFATE (325 MG) 325 MG/TAB TABLET PO SCH ×2 (08:43→16:38)
[2017-01-22] MEDS: FOLIC ACID 1 MG TABLET PO SCH (08:43)
[2017-01-22] MEDS: PANTOPRAZOLE 40 MG VIAL IV SCH ×2 (08:43→21:21)
--- NOTE | 2017-01-22 08:53 | NUR ---
icu note ale (friend) and "" chanell came in and visit, cussing and video taping, explained to them they are unable to video tape, ale was extremely belligerent, pacing around, trying to get information on the pt, security was here, told kentrell he is not allowed to use that language nor videotape, he said the call the police, pt's hr increase to 1340's rr 30's, pt was shaking. had ale and chanell escorted out of the area. Addendum: 01/22/17 at 0918 by VICKY WAGNER RN hr 130's, chanell, slurring speech, explained to them they need to keep to calm
[2017-01-22] MEDS ORDERED: NICOTINE PATCH (14MG) 14 MG PATCH.TD24 TD SCH (09:00)
--- NOTE | 2017-01-22 09:18 | NUR ---
icu note spoke with pt's father and step mother, informed them of visitors, explained plan of care, answered all questions and concerns
--- NOTE | 2017-01-22 09:45 | NUR ---
icu note lab called regarding blood culture results, gram + cocci md socorro aware, no new orders at this time
[2017-01-22] MEDS ORDERED: IV NS 0.9% 1,000 ML IV ONE (12:00)
--- NOTE | 2017-01-22 12:10 | NUR ---
icu note complete bedbath given again, mother at bedside, updated, answered all her questions and concerns
--- NOTE | 2017-01-22 13:47 | NUR ---
icu note magnesium 2g was replaced per md order
[2017-01-22] MEDS: VANCOMYCIN 1 GM in IV D5W 250 ML IV SCH (17:17)
--- NOTE | 2017-01-22 19:30 | NUR ---
BOARD HANDLER INITIAL NOTE RECEIVED REPORT FROM VICKY LIU. PT IN BED. A/A/O X3-4 WITH EPISODES OF CONFUSION. LUNGS SOUNDS CLEAR. RR 40 ON 4L NC. BOWEL SOUNDS PRESENT. CORE TEMP 103.[address]ASURE IN PL[address]. PULSES PRESENT. IV RIGHT UPPER ARM PATENT AND INTACT. BED IN LOW LOCKED POSITION, CALL LIGHT WITHIN REACH. WILL CONTINUE TO MONITOR.
--- NOTE | 2017-01-22 19:45 | NUR ---
CHEMISTRY DEPARTMENT CHAIR LISSY AT BEDSIDE. ESCORTED BY SECURITY. PT CORE TEMP 103. WILL CONTINUE TO MONITOR.
[2017-01-23] VITALS (43 sets, daily range): BP systolic 107–157; BP diastolic 56–104
--- NOTE | 2017-01-23 01:00 | NUR ---
RESIDENTIAL REAL ESTATE ASSISTANT PT CLEANED AND REPOSITIONED FOR COMFORT. COOLING MEASURES REMAIN IN PLACE. WILL CONTINUE TO MONITOR.
[2017-01-23] MEDS: diphenhydrAMINE HCL 50 MG/ML VIAL IV PRN (01:09)
[2017-01-23] MEDS: HYDROMORPHONE 1 MG/1 ML DISP.SYRIN IV PRN ×3 (01:09→15:23)
[2017-01-23] MEDS: VANCOMYCIN 1 GM in IV D5W 250 ML IV SCH ×3 (01:41→18:55)
[2017-01-23 04:37] LABS: BASOPHILS % (AUTO) 0.2 % (0.0-2.0); EOSINOPHILS # (AUTO) 0.1 /CMM (0.0-0.7); EOSINOPHILS % (AUTO) 0.3 % (0.0-6.0); HEMATOCRIT 21 % (39-51); HEMOGLOBIN 7.1 g/dL (13.5-17.5); LYMPHOCYTES # (AUTO) 1.6 /CMM (0.8-4.8); LYMPHOCYTES % (AUTO) 8.3 % (20.0-44.0); MEAN CORPUSCULAR HEMOGLOBIN 27 PG (26.0-33.0); MEAN CORPUSCULAR HGB CONC 34 g/dl (31.0-36.0); MEAN CORPUSCULAR VOLUME 81 fL (80-96); MONOCYTES # (AUTO) 1.2 /CMM (0.1-1.30); NEUTROPHILS # (AUTO) 16.8 /CMM (1.8-8.9); NEUTROPHILS % (AUTO) 85.2 % (43.0-81.0); PLATELET COUNT (AUTO) 195 /CMM (150-450); RDW COEFFICIENT OF VARIATION 15.9 (11.5-15.0); RED BLOOD CELL COUNT(AUTO) 2.59 MIL/uL (4.5-6.0); WHITE BLOOD COUNT (AUTO) 19.7 K/uL (4.3-11.0)
[2017-01-23 04:57] LABS: CALCIUM, SERUM 7.2 mg/dL (8.5-10.1); MAGNESIUM 1.6 mg/dL (1.8-2.4); PHOSPHORUS 3.3 mg/dL (2.5-4.9)
--- NOTE | 2017-01-23 05:00 | NUR ---
EEG TECHNICIAN TEMP GRADUALLY DECREASING. TEMP CURRENTLY 99.7. PT IS RESTING COMFORTABLY. ON 2L NC SATING 99%. BED IN LOW LOCKED POSITION. CALL LIGHT WITHIN REACH. WILL CONTINUE TO MONITOR.
--- NOTE | 2017-01-23 07:59 | NUR ---
ICU/RN INITIAL NOTES,AM RECEIVED REPORT FROM NIGHT NURSE. PT RESTING IN BED COMFORTABLY. AA0 3-4. PT ON 2LITERS NASAL CANULA, NO ACUTE DISTRESS NOTED AT THIS TIME. PT ON TELE SINUS TACHYCARDIA 106. PT AFEBRILE AT THIS TIME. WILL CONTINUE TO MONITOR AND ASSESS. ON REGULAR DIET, DIAPER IN PLACE, URINAL AT BEDSIDE. PT ASSESSED BY DR. AMBROSIO, RECEIVED ORDERS, WILL CARRY OUT. ALL NEEDS WILL BE ATTENDED TO, SAFETY MEASURES TAKEN, BED IN LOW POSITION, SIDE RAILS UP, CALL LIGHT WITHIN REACH. WILL CONTINUE CARE.
[2017-01-23] MEDS: PANTOPRAZOLE 40 MG VIAL IV SCH ×2 (08:31→21:11)
[2017-01-23] MEDS: Magnesium 1GM/D5W 100ML PREMIX 100 ML IV SCH ×2 (08:31→10:04)
[2017-01-23] MEDS: NICOTINE PATCH (21MG) 21 MG PATCH.TD24 TD SCH (08:32)
[2017-01-23] MEDS: FERROUS SULFATE (325 MG) 325 MG/TAB TABLET PO SCH ×2 (08:32→17:28)
[2017-01-23] MEDS: FOLIC ACID 1 MG TABLET PO SCH (08:32)
[2017-01-23] MEDS: ACETAMINOPHEN 325 MG TABLET PO PRN ×2 (08:57→17:28)
--- NOTE | 2017-01-23 10:23 | NUR ---
ICU/RN: ECHO DONE. COOLING MEASURES TAKEN, PT TEMP 103. TYLENOL GIVEN, COOLING BLANKET APPLIED. MOTHER AT BEDSIDE. UPDATES GIVEN.
--- NOTE | 2017-01-23 10:30 | NUR ---
ICU/RN: PT STARTED SPIKING TEMP. COOLING BLANKET TURNED ON AND TYLENOL GIVEN. WILL CONTINUE TO MONITOR
[2017-01-23] MEDS: LORAZEPAM INJ 2 MG/ML VIAL IV PRN ×2 (15:23→22:14)
--- NOTE | 2017-01-23 15:30 | NUR ---
ICU/RN: PT SEEN AND ASSESSED BY . INFORMED MD OF LOW H/H. MD DOES NOT WANT TO TRANSFUSE SINCE PT IS FEBRILE AND ACTIVELY IN WITHDRAWAL. WILL CONTINUE CARE
[2017-01-23] MEDS: LINEZOLID RTU BAG 600 MG in PREMIX 1 EA IV SCH (17:28)
--- NOTE | 2017-01-23 18:44 | NUR ---
ICU/RN ENDING NOTES,AM REPORT WILL BE ENDORSED TO NIGHT NURSE FOR CONTINUATION OF CARE. ALL NEEDS MET. PT ON NASAL CANULA, NO RESPIRATORY DISTRESS NOTED. PT EXHIBITING WITHDRAWAL SYMPTOMS AND FEVER. ACETAMINOPHEN GIVEN. PT BATHE, LINENS CHANGED. ALL NEEDS MET SAFETY MEASURES TAKEN, BED IN LOW POSITION, SIDE RAILS UP, CALL LIGHT WITHIN REACH. MOTHER AT BEDSIDE.
--- NOTE | 2017-01-23 19:30 | NUR ---
VIBRATION ANALYST INITIAL NOTE RECEIVED REPORT FROM MARK RN. PT IN BED. A/A/O X3. CORE TEMP 102.2, COOLING MEASURES IN PLACE. LUNG SOUNDS CLEAR, ON 2L NC SATING WELL. BOWEL SOUNDS PRESENT. CONTINENT TO BOTH URINE AND STOOL. IV PATENT AND INTACT. RECTAL PROBE INTACT. REPOSITIONED FOR COMFORT. BED IN LOW LOCKED POSITION. CALL LIGHT WITHIN REACH. WILL CONTINUE TO MONITOR.
--- NOTE | 2017-01-23 20:15 | NUR ---
LEAD PROGRAMMER PT HAD A LARGE BM, PT WAS CLEANED AND ALL NEEDS WERE MET. PT CORE TEMP DECREASING CURRENTLY 101. BED IN LOW LOCKED POSITION. WILL CONTINUE TO MONITOR.
[2017-01-23] MEDS: HYDROCODONE/APAP 5/325MG 1 EACH TABLET PO PRN (21:12)
[2017-01-24] VITALS (30 sets, daily range): BP systolic 100–144; BP diastolic 39–93
[2017-01-24] MEDS: HYDROMORPHONE 1 MG/1 ML DISP.SYRIN IV PRN ×4 (02:11→20:39)
[2017-01-24] MEDS: VANCOMYCIN 1 GM in IV D5W 250 ML IV SCH ×3 (02:11→17:01)
--- NOTE | 2017-01-24 03:00 | NUR ---
PORT CAPTAIN PT IN BED, ASLEEP BUT EASILY AROUSABLE. CORE TEMP 99.7. RIGHT UPPER ARM DRESSING CHANGED. PT TOLERATED WELL. NEEDS MET. BED IN LOW LOCKED POSITION. WILL CONTINUE TO MONITOR.
[2017-01-24] MEDS: LORAZEPAM INJ 2 MG/ML VIAL IV PRN ×5 (03:04→19:49)
[2017-01-24 04:31] LABS: BASOPHILS % (AUTO) 0.2 % (0.0-2.0); MEAN CORPUSCULAR HEMOGLOBIN 27 PG (26.0-33.0)
[2017-01-24 04:32] LABS: EOSINOPHILS # (AUTO) 0.1 /CMM (0.0-0.7); EOSINOPHILS % (AUTO) 0.5 % (0.0-6.0); LYMPHOCYTES # (AUTO) 1.4 /CMM (0.8-4.8); LYMPHOCYTES % (AUTO) 7.9 % (20.0-44.0); MEAN CORPUSCULAR HGB CONC 33 g/dl (31.0-36.0); MEAN CORPUSCULAR VOLUME 81 fL (80-96); MONOCYTES % (AUTO) 5.9 % (2.0-12.0); NEUTROPHILS % (AUTO) 85.5 % (43.0-81.0); PLATELET COUNT (AUTO) 198 /CMM (150-450); RDW COEFFICIENT OF VARIATION 15.9 (11.5-15.0); RED BLOOD CELL COUNT(AUTO) 2.37 MIL/uL (4.5-6.0); WHITE BLOOD COUNT (AUTO) 17.6 K/uL (4.3-11.0)
[2017-01-24 04:35] LABS: CALCIUM, SERUM 7.6 mg/dL (8.5-10.1); MAGNESIUM 1.9 mg/dL (1.8-2.4); PHOSPHORUS 4.2 mg/dL (2.5-4.9); POTASSIUM 3.6 mmol/L (3.5-5.1); TOTAL PROTEIN, SERUM 6.1 g/dL (6.4-8.2)
[2017-01-24 04:41] LABS: HEMATOCRIT 19 % (39-51); HEMOGLOBIN 6.4 g/dL (13.5-17.5)
[2017-01-24 04:52] LABS: ALBUMIN 0.9 g/dL (3.4-5.0)
[2017-01-24] MEDS: LINEZOLID RTU BAG 600 MG in PREMIX 1 EA IV SCH ×2 (04:59→17:01)
[2017-01-24] MEDS: ACETAMINOPHEN 325 MG TABLET PO PRN ×3 (04:59→22:02)
--- NOTE | 2017-01-24 05:00 | NUR ---
SECRETARY TO THE VICE PRESIDENT PT H/H 6.4/19.3, DR HERRERA NOTIFIED AND ORDERS RECEIVED TO ORDER 2 UNITS PRBC AND TRANSFUSE. WILL CARRY OUT ORDERS.
[2017-01-24 05:12] LABS: INR 1.15 (0.87-1.13)
[2017-01-24 05:19] LABS: BAND % (MANUAL) 6 % (0.0-5.0); LYMPHOCYTES % (MANUAL) 11 % (16-48); MONOCYTES % (MANUAL) 8 % (0-11.0); NEUTROPHILS % (MANUAL) 75 (42-76)
[2017-01-24 05:27] LABS: D-DIMER 3.68 mg/L(FEU (0.17-0.50)
--- NOTE | 2017-01-24 08:30 | NUR ---
CORPORATE STRATEGY INTERN; ASSESSMENT RECEIVED PT AWAKE AND ORIENTED X3. WITH GENERALIZED WEAKNESS. PT C/O GENERAZILIED PAIN 12/05. WILL REVIEW MEDICATIONS. PT CONTINUES WITH LOW GRADE FEVER OF 100.3. CALL LIGHT WITH IN REACH. WILL CONTINUE WITH POC.
[2017-01-24] MEDS: PANTOPRAZOLE 40 MG VIAL IV SCH ×2 (08:39→20:39)
[2017-01-24] MEDS: FERROUS SULFATE (325 MG) 325 MG/TAB TABLET PO SCH ×2 (08:39→17:02)
[2017-01-24] MEDS: NICOTINE PATCH (21MG) 21 MG PATCH.TD24 TD SCH (08:39)
[2017-01-24] MEDS: FOLIC ACID 1 MG TABLET PO SCH (08:39)
--- NOTE | 2017-01-24 10:41 | NUR ---
REAL ESTATE PHOTOGRAPHER; PULMONARY DR. SIMON AT BEDSIDE UPDATE WAS GIVEN. DISCUSSED WITH MD REGARDING PT REQUESTING FOR MOTRIN INSTEAD OF TYLENOL, STATING THAT ITS MORE EFFECTIVE FOR HIS FEVERS. DR. SIMON DENIED THE REQUEST DUE TO PTS PREVIOUS RENAL INSUFFICIENCY. EXPLAINED TO PT MD ORDERS AND VERBALIZES UNDERSTANDING.
[2017-01-24] MEDS: diphenhydrAMINE HCL 50 MG/ML VIAL IV PRN ×3 (10:46→22:02)
[2017-01-24] MEDS: HYDROCODONE/APAP 5/325MG 1 EACH TABLET PO PRN ×3 (12:00→19:50)
--- NOTE | 2017-01-24 12:00 | NUR ---
ICU/RN PT IS AGITATED,C/O OF GENERALIZED PAIN .ATIVAN 1 MG IV GIVEN AND NORCO 1 TAB PO GIVEN ORDERED.BLOOD TRANSFUSION STARTED ORDERED.H/H-6.07/14. FAMILY AT BEDSIDE.CONTINUE MONITORING.
--- NOTE | 2017-01-24 14:00 | NUR ---
ICU/RN 1 UNIT PRBC GIVEN ORDERED.V/S STABLE.T-99.5.FAMILY AT BEDSIDE.CONTINUE MONITORING.
[2017-01-24] MEDS ORDERED: LIDOCAINE 1% INJ 50 ML MDV IJ ONE (15:00)
[2017-01-24 16:13] LABS: *ANCA ATYPICAL p-ANCA 1:40 titer (Neg:<1:20); *ANCA CYTOPLASMIC (C-ANCA) <1:20 titer (Neg:<1:20); *ANCA PERINUCLEAR (P-ANCA) <1:20 titer (Neg:<1:20)
--- NOTE | 2017-01-24 16:36 | NUR ---
WOOL SHEARER PRIMARY MD MADE AWARE THAT FAMILY IS REQUESTING FOR THE PATIENT TO BE SEEN BY A MACHINE STEMMER.
--- NOTE | 2017-01-24 16:38 | NUR ---
PROPERTY CONTROLLER PER DR. SESAY, PATIENT WILL BE SEEN BY DR. MEJÍA.
--- NOTE | 2017-01-24 16:41 | NUR ---
ICU/RN SECOND UNIT OF BLOOD GIVEN ORDERED.T-100.2 BENADRYL IV AND TYLENOL PO GIVEN ORDERED.PT HAD LEFT FOOT 3RD TOE DEBRIDEMENT.C/O OF PAIN.DR SHAMA AguiarNOTIFIED.FAMILY AT BEDSIDE.
--- NOTE | 2017-01-24 18:15 | NUR ---
ICU/RN PT POST DEBRIDEMENT OF THE LEFT FOOT TOE.C/O OF PAIN.DR CLANCY O, NOTIFIED .DOES NOT WANT TO ORDER ANY EXTRA PAIN MEDS.PT HAS T-102.COOLING MEASURES PROVIDED.DUE MEDS ARE GIVEN ORDERED.WAITING FOR THR LEFT FOOT X-RAY.CONTINUE MONITORING.
--- NOTE | 2017-01-24 20:00 | NUR ---
CHECK EXAMINER - NOTES - RECEIVED PT AWAKE AND ORIENTED X3. WITH GENERALIZED WEAKNESS. PT C/O GENERAZILIED PAIN 12/05. WILL REVIEW MEDICATIONS. PT CONTINUES WITH FEVER OF 102.2, PT HAS A HR ST 120S, ON 2L NC O2SAT 98%. CALL LIGHT WITH IN REACH. WILL CONTINUE WITH POC.
--- NOTE | 2017-01-24 22:00 | NUR ---
PT TEMP STARTS INCREASING TO 105.5, PT IS SHAKING, HE FEELS LIKE HE IS FREEZING, HE IS FINALLY CONVINCED TO PUT ON THE COOLING BLANKET, TYLENOL GIVEN, FAN ON, LIGHTS OFF, ICE PACKS ON GROIN AND UNDERARMS. TEMP STARTING TO GO DOWN
--- NOTE | 2017-01-24 23:00 | NUR ---
PT TEMP DROPPING TO 103.2, PT FEELS BETTER, NOT SHAKING ANYMORE, FAMILY RELIEVED AND ARE GOING HOME NOW, WILL CONTINUE TO MONITOR
[2017-01-25] VITALS (16 sets, daily range): BP systolic 123–148; BP diastolic 76–91
--- NOTE | 2017-01-25 | NUR ---
FULL BED BATH GIVEN, ALL LINENS CHANGED, COOLING BLANKET REMOVED, TEMP DROPPED BELOW 101
[2017-01-25] MEDS: VANCOMYCIN 1 GM in IV D5W 250 ML IV SCH ×2 (01:45→10:28)
[2017-01-25] MEDS: LORAZEPAM INJ 2 MG/ML VIAL IV PRN ×3 (01:51→14:59)
[2017-01-25] MEDS: HYDROCODONE/APAP 5/325MG 1 EACH TABLET PO PRN (01:53)
[2017-01-25] MEDS: HYDROMORPHONE 1 MG/1 ML DISP.SYRIN IV PRN ×3 (03:10→14:19)
[2017-01-25] MEDS: LINEZOLID RTU BAG 600 MG in PREMIX 1 EA IV SCH (04:28)
[2017-01-25 04:44] LABS: BASOPHILS % (AUTO) 0.2 % (0.0-2.0); EOSINOPHILS # (AUTO) 0.1 /CMM (0.0-0.7); EOSINOPHILS % (AUTO) 0.3 % (0.0-6.0); HEMATOCRIT 23 % (39-51); LYMPHOCYTES # (AUTO) 1.8 /CMM (0.8-4.8); LYMPHOCYTES % (AUTO) 8.4 % (20.0-44.0); MEAN CORPUSCULAR HEMOGLOBIN 28 PG (26.0-33.0); MEAN CORPUSCULAR HGB CONC 34 g/dl (31.0-36.0); MEAN CORPUSCULAR VOLUME 83 fL (80-96); MONOCYTES # (AUTO) 1.3 /CMM (0.1-1.30); MONOCYTES % (AUTO) 6.1 % (2.0-12.0); NEUTROPHILS # (AUTO) 18.4 /CMM (1.8-8.9); PLATELET COUNT (AUTO) 278 /CMM (150-450); RDW COEFFICIENT OF VARIATION 15.8 (11.5-15.0); RED BLOOD CELL COUNT(AUTO) 2.84 MIL/uL (4.5-6.0); WHITE BLOOD COUNT (AUTO) 21.7 K/uL (4.3-11.0)
[2017-01-25 04:59] LABS: CALCIUM, SERUM 7.4 mg/dL (8.5-10.1); CREATININE 1.1 mg/dL (0.6-1.3); MAGNESIUM 1.6 mg/dL (1.8-2.4); PHOSPHORUS 3.8 mg/dL (2.5-4.9)
[2017-01-25 05:08] LABS: POTASSIUM 4.3 mmol/L (3.5-5.1)
[2017-01-25 05:17] LABS: BAND % (MANUAL) 7 % (0.0-5.0); LYMPHOCYTES % (MANUAL) 10 % (16-48); MONOCYTES % (MANUAL) 4 % (0-11.0); NEUTROPHILS % (MANUAL) 79 (42-76)
--- NOTE | 2017-01-25 06:41 | NUR ---
PT RESTING IN BED HR ST 120S, TEMP 102.4, PT CLEAN AND COMFORTABLE
--- NOTE | 2017-01-25 07:32 | NUR ---
ALARM OPERATOR RECEIVED PATIENT FROM THE PREVIOUS SHIFT. PATIENT IS IN BED. RECTAL TEMP 102.7. COOLING BLANKET IS ON. FLUIDS PROVIDED. SINUS TACH ON MONITOR. BP MONITORED. WILL CONTINUE TO MONITOR AND PROVIDE CARE.
[2017-01-25] MEDS: FERROUS SULFATE (325 MG) 325 MG/TAB TABLET PO SCH (08:47)
[2017-01-25] MEDS: FOLIC ACID 1 MG TABLET PO SCH (08:47)
[2017-01-25] MEDS: PANTOPRAZOLE 40 MG VIAL IV SCH (08:47)
[2017-01-25] MEDS: NICOTINE PATCH (21MG) 21 MG PATCH.TD24 TD SCH (08:47)
[2017-01-25] MEDS ORDERED: DOCUSATE SODIUM 100 MG CAPSULE PO SCH (09:30)
[2017-01-25] MEDS: Magnesium 1GM/D5W 100ML PREMIX 100 ML IV SCH ×2 (11:48→13:17)
--- NOTE | 2017-01-25 12:19 | NUR ---
CARRIER WASHER PAGED DR. FLAHERTY FROM PAIN MANAGEMENT PER FAMILY REQUEST. AWAITING REPLY.
[2017-01-25] MEDS ORDERED: BOOST PLUS FOOD-CHOCLATE 237 ML BOX PO SCH (13:00)
--- NOTE | 2017-01-25 15:29 | NUR ---
MECHANICAL EQUIPMENT TEST ENGINEER PATIENT TRANSFERRED TO [facility] ICU 5C BEC 130. UNIT PHONE NO [phone]. DETAILED REPORT GIVEN TO WILL LIU FROM 5C CARDIAC ICU. MAC NO. [id number]. FOR UZAIR SAUL'S CARE. UPON DISCHARGE PATIENT'S HEAR RATE IN 120S AND 130S. TEMP 102.3. COOLING MEASURES ARE IN PLACE. FAMILY AWARE. EXIT CARE AND EXIT EDUCATION GIVEN TO THE FAMILY. REPORT GIVEN TO AMBULANCE. PATIENT LEFT THE FACILITY WITH 2 PARAMEDICS IN STABLE CONDITIONS.
== END 2017-01-25 16:11 | disposition short-term general hospital (02) | DRG 710 ==
LOC: ER 10:55 → ICU 12:43
PROVIDERS: ADMIT Internal Medicine; ATTEND Internal Medicine
PROC: 30233N1 Transfusion of Nonautologous Red Blood Cells into Peripheral Vein, Percutaneous Approach (ICD-10-PCS; principal; 2017-01-21)
PROC: 05H533Z Insertion of Infusion Device into Right Subclavian Vein, Percutaneous Approach (ICD-10-PCS; 2017-01-24)
PROC: 0KBW0ZZ Excision of Left Foot Muscle, Open Approach (ICD-10-PCS; 2017-01-24)
DX: A41.9 Sepsis, unspecified organism (principal); N17.0 Acute kidney failure with tubular necrosis; I33.0 Acute and subacute infective endocarditis; G93.40 Encephalopathy, unspecified; E43 Unspecified severe protein-calorie malnutrition; I76 Septic arterial embolism; E87.1 Hypo-osmolality and hyponatremia; D68.9 Coagulation defect, unspecified; E44.0 Moderate protein-calorie malnutrition; D50.9 Iron deficiency anemia, unspecified; Z59.0 Homelessness; F84.5 Asperger's syndrome; D63.8 Anemia in other chronic diseases classified elsewhere; B95.62 Methicillin resistant Staphylococcus aureus infection as the cause of diseases classified elsewhere; F32.9 Major depressive disorder, single episode, unspecified; Z87.891 Personal history of nicotine dependence; N05.7 Unspecified nephritic syndrome with diffuse crescentic glomerulonephritis; K72.90 Hepatic failure, unspecified without coma; E83.42 Hypomagnesemia; E87.6 Hypokalemia; I70.0 Atherosclerosis of aorta; I08.1 Rheumatic disorders of both mitral and tricuspid valves; N05.8 Unspecified nephritic syndrome with other morphologic changes; R65.20 Severe sepsis without septic shock; D69.6 Thrombocytopenia, unspecified; F11.23 Opioid dependence with withdrawal; L02.612 Cutaneous abscess of left foot
CPT/HCPCS: 36415; 36569; 36600; 71010-TC; 71250-TC; 73630-TC; 80048-TC; 80053-TC; 80061-TC; 80076-TC; 80202-TC; 81000-TC; 82272-TC; 82550-TC; 82570-TC; 82728-TC; 82746; 83520; 83540-TC; 83605-TC; 83735-TC; 83935-TC; 84100-TC; 84300-TC; 84443-TC; 84484-TC; 85025-TC; 85027-TC; 85378-TC; 85385-TC; 85396; 85610-TC; 85730-TC; 86256; 86706; 86803; 86850-TC; 86921-TC; 87040-TC; 87070-TC; 87081-TC; 87086-TC; 87340; 93307-TC; A4216; A4606; A6402; C9113; J0696; J1170; J1200; J1580; J2020; J2060; J2405; J2916; J3370; J3475; J3480; J3490; J7030; J7040; J7050; J7060; P9016-BL; Z7610